=== PATIENT | female | born 2000 | race Caucasian/White ===

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

== ENCOUNTER → 2022-02-09 | Outpatient (CLI) | payer BC, SELFPAY ==
--- NOTE | 2022-02-09 10:15 | ECHOD_ITS ---
Reason For Study: Arrhythmia Procedure This was a 2D Doppler, Color Flow transthoracic echocardiogram. Exam performed in department. Left Ventricle Normal LV size. Left ventricular systolic function is normal. The estimated ejection fraction is 60 %. Normal diastology for age. No regional wall motion abnormalities noted. Right Ventricle Normal RV size. Normal systolic function. Atria Normal left atrium. Normal right atrium. Mitral Valve Normal mitral valve. Tricuspid Valve Normal tricuspid valve. Aortic Valve Normal aortic valve. Trisinus/trileaflet aortic valve. Pulmonic Valve Normal pulmonic valve. Great Vessels Normal aortic root. The pulmonary artery is normal size. Normal inferior vena cava. Pericardium/Pleural No pericardial effusion. MMode/2D Measurements & Calculations LVIDd: 4.1 cm IVSd: 0.77 cm Ao root diam: 2.3 cm LVIDs: 2.8 cm LVPWd: 0.75 cm LA dimension: 2.6 cm RVDd: 2.7 cm FS: 32.9 % LAV(MOD-bp): 34.7 ml LA A4 area: 13.8 cm2 RA A4 area: 10.4 cm2 LAV(MOD-bp) Indexed: 22.9 ml/m2 LAV(MOD-sp2): 31.0 ml LAV(MOD-sp4): 35.7 ml Time Measurements MV dec time: 0.20 sec Doppler Measurements & Calculations MV E max jass: 110.2 cm/sec Lat Peak E' Jass: 18.0 cm/sec Med Peak E' Jass: 15.0 cm/sec MV A max jass: 41.1 cm/sec E/E' lat: 6.1 E/E' med: 7.4 MV E/A: 2.7 MV V2 max: 112.7 cm/sec MV P1/2t max jass: 115.4 cm/sec Ao V2 max: 111.7 cm/sec MV max P.1 mmHg MV P1/2t: 89.3 msec Ao max P.0 mmHg MV V2 mean: 51.2 cm/sec MV dec slope: 378.4 cm/sec2 MV mean P.4 mmHg MVA(P1/2t): 2.5 cm2 MV V2 VTI: 25.1 cm LV V1 max: 103.0 cm/sec PA V2 max: 104.0 cm/sec TR max jass: 203.7 cm/sec LV V1 max P.2 mmHg TR max P.6 mmHg ECHO/Echo Complete Interpretation Summary Normal LV size. Left ventricular systolic function is normal. The estimated ejection fraction is 60 %. Normal diastology for age. Structurally normal valves. Ordering Physician: Jose Antonio Barrientos Referring Physician: Eligio Graham Performed By: Saturnino Ramirez RCS
== END | disposition home or self-care (01) ==
PROVIDERS: PCP Internal Medicine; Referring Provider Internal Medicine Cardiovascular Disease; Visit Provider Internal Medicine Cardiovascular Disease
DX: R00.0 Tachycardia, unspecified (principal)
CPT/HCPCS: 93225; 93226; 93306

== ENCOUNTER → 2022-05-14 | Outpatient (CLI) | payer BC, SELFPAY ==
[2022-05-14 15:24] LABS: Cholesterol 200 mg/dL (200); High Density Lipoprotein 47 mg/dL; T4 Free Direct 1.28 ng/dL (0.76-1.46); Thyroid Stim Hormone (TSH) 0.73 uIU/mL (0.358-3.74); Triglycerides 116 mg/dL; Very Low Density Lipoprotein 23 mg/dL (5-40)
== END | disposition home or self-care (01) ==
LOC: BIMLAB 14:03
PROVIDERS: PCP Internal Medicine; Referring Provider Internal Medicine; Visit Provider Internal Medicine
DX: E78.5 Hyperlipidemia, unspecified (principal); R63.4 Abnormal weight loss
CPT/HCPCS: 36415; 80061; 84439; 84443

== ENCOUNTER → 2023-09-09 | Outpatient (CLI) | payer BC, SELFPAY ==
--- OUTSIDE RECORDS SUMMARY | 2023-09-09 16:33 | XMS RPT_ITS | CCD ---
Author Name Unknown Address [address] [place] [address] Organization [facility] Care Team Providers Care Aerodynamic Consultant Name Role Phone No, Physician Primary Care Provider Unavailabl e Problems Problem Classification Problem Date Documented Da te Episodic/Chronic Cardiac dysrhythmias (1 source) Tachycardia; Translations: [Tachycardia, unspecified] Episodic Results Test Name Value Interpretation Reference Range Facil ity Encounters Encounter Date Encounter Type Care Provider Facility Start: 06-25-2021 Orders Only Je Solis MD Work Phone: [facility] Plan of Treatment Date Care Activity Detail Author Start: 07-10-2021 End: 07-10-2021 Patient encounter procedure 07/10/2021 Office Visit Cardiology Je Solis MD [address] [facility] [address] [place] [address] [facility] Start: 04-22-2021 Influenza vaccination Sequential Influenza Vaccine (#1) [facility] Start: 2020 Hepatitis C screening Hepatitis C Screening [facility] Start: 2017 HIV screening HIV Screening [facility] Start: 2014 COVID-19 Vaccine (1) COVID-19 Vaccine (1) [facility] Start: 2014 Depression screening using PHQ-9 (Patient Health Questionnaire 9) score Depression Screening (PHQ-2/9) [facility] Start: 2013 Vaccination for human papillomavirus HPV Vaccines (1 - 2-dose series) [facility] Start: 2005 History and physical examination, annual for health maintenance Wellness Visit [facility] Start: 2002 Screening for Chlamydia trachomatis Chlamydia Screening [facility] Start: 2002 Tetanus vaccination Tetanus: Every 10yrs [facility] End: 06-25-2022 12 lead ECG ECG 12 Lead ECG Routine Tachycardia 2 Occurrences starting 06/25/2021 until 06/25/2022 [facility] Work Phone: Payers Date Payer Category Payer Unknown DONTE GARCIA/PREF/HMO/PPO [id number] 2018-Present [phone] [address] [place] [address] [id number] Social History Date Type Detail Facility 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 [facility] Start: 2002 Sex Assigned At Not on file [facility] Evaluation note Note Date & Type Note Facility documented in this encounter [facility] Summary Purpose Family History No Family History Records FoundNo Family History Records FoundNo Family History Records Found Advance Directives No Advanced Directives Records FoundDocuments on File Type Date 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 Advance Directives and Livin g Will 06/05/2021 12:00 AM Reason for Referral Specialty Diagnoses / Procedures Referred By Lonnie payton Referred To Contact Cardiology Diagnoses Tachycardia Procedures ECG 12 Lead Je Solis MD [address] [facility] [address] [place] [address] Referral ID Status Reason Start Date Expiration Date V isits Requested Visits Authorized [id number] Authorized 06/25/2021 06/25/2022 1 1 Additional Source Comments INFORMATION SOURCE (unrecogn ized section and content) DATE CREATED AUTHOR AUTHOR'S ORGANIZ ATION 04/23/2019 [facility] DATE CREATED AUTHOR AUTHOR'S ORGANIZ ATION 10/07/2021 [facility] Care Teams (unrecognized sec tion and content) FOR RECORDS PERTAINING TO PATIENTS WHO ARE OR HAVE BEEN ENROLLED IN A CHEMICAL DEPENDENCY/SUBSTANCEABUSE PROGRAM, SOME INFORMATION MAY BE OMITTED. This clinical summary was aggregated from multiple sources. Caution should be exercised in using it in the provision of clinical care. This summary normalizes information from multiple sources, and as a consequence, information in this document may materially change the coding, format and clinical context of patient data. In addition, data may be omitted in some cases. CLINICAL DECISIONS SHOULD BE BASED ON THE PRIMARY CLINICAL RECORDS. [facility] [employer] [facility]. provides no warranty or guarantee of the accuracy or completeness of information in this document.
[2023-09-14 17:30] LABS: HPV Reflexed? NOT INDICATED
== END | disposition home or self-care (01) ==
LOC: LABSPEC 16:28
PROVIDERS: PCP Internal Medicine; Referring Provider Advanced Practice Midwife; Visit Provider Advanced Practice Midwife
DX: Z12.4 Encounter for screening for malignant neoplasm of cervix (principal)
CPT/HCPCS: 88175; G0145

== ENCOUNTER → 2023-10-14 | Outpatient (CLI) | payer BC, SELFPAY ==
[2023-10-14 17:56] LABS: Absolute Lymphocyte Count 2.31 X10^3/uL (0.83-4.51); Absolute Neutrophil Count 6.2 X10^3/uL (2.0-7.7); Basophil# 0.04 X10^3/uL; Basophil% 0.4 % (0-1); Eosinophil# 0.04 X10^3/uL; Eosinophils% 0.4 % (0-5); Hematocrit 42.1 % (37-47); Hemoglobin 13.5 g/dL (12.0-15.0); Lymphocyte # 2.31 X10^3/ul (0.83-4.51); Lymphocyte % 25.6 % (19-41); Mean Corp Hgb Conc 32.1 g/dL (32-36); Mean Corpuscular Hgb 27.8 pg (27.0-32.0); Mean Corpuscular Volume 86.6 fL (81-99); Mean Platelet Vol. 10.1 fl (6.2-12.0); Monocyte# 0.46 X10^3/uL; Monocyte% 5.1 % (0-10); NRBC Flagged by Analyzer 0 % (0-5); Neutrophil # 6.17 X10^3/uL (2.7-7.7); Neutrophil % 68.3 % (47-70); Platelet Count 507 K/mm3 (150-450); RBC Distribution Width CV 12.7 % (11.6-14.6); RBC Distribution Width SD 40.3 fl (35.1-43.9); Red Blood Count 4.86 M/mm3 (4.2-5.4)
[2023-10-14 18:03] LABS: Internal QC Validated? YES +Cl - CLEAR BKGD; Pregnancy, Serum, hCG Quali. NEGATIVE Negative; Record Kit Lot#, Serum Preg. 718086
[2023-10-14 18:04] LABS: Erythrocyte Sedimentation Rate 12 mm/hr (0-30)
[2023-10-14 18:15] LABS: ALB/GLOB Ratio 0.9 RATIO (0.9-2.4); AST(SGOT) 10 U/L (15-37); Alanine Aminotransfer ALT/SGPT 9 U/L (13-56); Albumin, Serum 3.8 g/dL (3.2-5.0); Alkaline Phosphatase 64 U/L (45-117); Anion Gap 6 (5-15); BUN 10 mg/dL (7-18); BUN/Creat Ratio 12.8 RATIO (10-20); Calcium,Total 9.1 mg/dL (8.5-10.1); Chloride 105 mmol/L (98-107); Creatinine, Serum 0.78 mg/dL (0.55-1.02); EST Glomerular Filtration Rate 98 mL/min (>60); Est Glom Filt Rate - Afr Amer 119 mL/min (>60); Ferritin 54 ng/mL (8-252); Globulin 4.3 g/dL (2.2-4.2); Glucose 105 mg/dL (74-106); Iron 94 ug/dL (50-170); Potassium 3.7 mmol/L (3.5-5.1); Protein, Total 8.1 g/dL (6.4-8.2); Sodium Level 138 mmol/L (136-145); Thyroid Stim Hormone (TSH) 1.11 uIU/mL (0.358-3.74)
--- OUTSIDE RECORDS SUMMARY | 2023-10-14 18:43 | XMS RPT_ITS | CCD ---
Author Name Unknown Address [address] [place] [address] Organization [facility] Care Team Providers Care Technical Mgr Name Role Phone No, Physician Primary Care Provider Unavailabl e REFERRED, SELF Referring Unavailable ALEXIS WANG Primary Care Unavailable AZUCENA DEUTSCH Attending Unavailable Problems Problem Classification Problem Date Documented Da te Episodic/Chronic Cardiac dysrhythmias (1 source) Tachycardia; Translations: [Tachycardia, unspecified] Episodic Results Test Name Value Interpretation Reference Range Facil ity Encounters Encounter Date Encounter Type Care Provider Facility Start: 10-06-2023 End: 10-06-2023 ambulatory SELF REFERRED [facility] Start: 06-25-2021 Orders Only Je Solis MD Work Phone: [facility] Plan of Treatment Date Care Activity Detail Author Start: 07-10-2021 End: 07-10-2021 Patient encounter procedure 07/10/2021 Office Visit Cardiology Je Solis MD [address] [facility] [address] [place] [address] [facility] Start: 04-22-2021 Influenza vaccination Sequential Influenza Vaccine (#1) [facility] Start: 2020 Hepatitis C screening Hepatitis C Screening [facility] Start: 2017 HIV screening HIV Screening [facility] Start: 2014 COVID-19 Vaccine (1) COVID-19 Vaccine (1) [facility] Start: 2014 Depression screening using PHQ-9 (Patient Health Questionnaire 9) score Depression Screening (PHQ-2/9) [facility] Start: 2013 Vaccination for human papillomavirus HPV Vaccines (1 - 2-dose series) [facility] Start: 2005 History and physical examination, annual for health maintenance Wellness Visit [facility] Start: 2002 Screening for Chlamydia trachomatis Chlamydia Screening [facility] Start: 2002 Tetanus vaccination Tetanus: Every 10yrs [facility] End: 06-25-2022 12 lead ECG ECG 12 Lead ECG Routine Tachycardia 2 Occurrences starting 06/25/2021 until 06/25/[address] 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 Start: 2002 Sex Assigned At Not on file [facility] Evaluation note Note Date & Type Note Facility documented in this encounter 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 Advance Directives and Livin g Will 06/05/2021 12:00 AM Reason for Referral Specialty Diagnoses / Procedures Referred By Lonnie payton Referred To Contact Cardiology Diagnoses Tachycardia Procedures ECG 12 Lead Je Solis MD [address] [facility] [address] [place] [address] Referral ID Status Reason Start Date Expiration Date V isits Requested Visits Authorized [id number] Authorized 06/25/2021 06/25/2022 1 1 Additional Source Comments INFORMATION SOURCE (unrecogn ized section and content) DATE CREATED AUTHOR AUTHOR'S ORGANIZ ATION 04/23/2019 [facility] DATE CREATED AUTHOR AUTHOR'S ORGANIZ ATION 10/08/2023 [facility] Care Teams (unrecognized sec tion and content) [...] BE BASED ON THE PRIMARY CLINICAL RECORDS. [facility], [facility]. provides no warranty or guarantee of the accuracy or completeness of information in this document.
[2023-10-17 15:08] LABS: ANTINUCLEAR ANTIBODIES DIRECT Negative (Negative)
[2023-10-17 16:09] LABS: EBV Acute VCA IgM < 36.0 U/mL (0.0-35.9); EBV Nuclear Antigen IgG < 18.0 U/mL (0.0-17.9)
== END | disposition home or self-care (01) ==
LOC: MTLAB 15:54
PROVIDERS: PCP Internal Medicine; Referring Provider Physician Assistant; Visit Provider Physician Assistant
DX: R53.83 Other fatigue (principal); N92.6 Irregular menstruation, unspecified
CPT/HCPCS: 36415; 80053; 82728; 83540; 84443; 84703; 85025; 85652; 86038; 86225; 86235; 86664; 86665

== ENCOUNTER → 2024-09-18 | Outpatient (CLI) | payer BC, SELFPAY ==
[2024-09-20 06:34] LABS: Chlamydia By Nucleic Acid AMP Negative (Negative); Gonococcus By Nucleic Acid AMP Negative (Negative)
== END | disposition home or self-care (01) ==
LOC: LABSPEC 11:40
PROVIDERS: PCP Internal Medicine; Referring Provider Nurse Practitioner Women's Health; Visit Provider Nurse Practitioner Women's Health
DX: Z11.3 Encounter for screening for infections with a predominantly sexual mode of transmission (principal)
CPT/HCPCS: 87491; 87591